=== PATIENT | female | born 2000 | race Hispanic/Latino ===

== ENCOUNTER 2024-08-21 21:05 | Emergency (ER) | payer SELFPAY ==
[2024-08-21 23:35] LABS: #Basophils 0.02 10x3/uL (0.0-0.2); #Eosinphils 0.08 10x3/uL (0.0-0.5); #Neutrophils 5.43 10x3/uL (1.5-8.4); %Basophils 0.2 % (0.0-2.0); %Eosinophils 0.9 % (0.0-6.0); %Lymphocytes 35.6 % (18.0-47.0); %Monocytes 4.3 % (0.0-10.0); %Neutrophils 58.8 % (40.0-75.0); Hematocrit 30.4 % (34.9-44.5); Hemoglobin 10.6 g/dL (12.0-15.5); Mean Corpuscular HGB CONC 34.9 g/dL (32.0-36.0); Mean Corpuscular Hemoglobin 30.1 pg (27.0-33.0); Mean Corpuscular Volume 86.4 fL (81.6-98.3); Mean Platelet Volume 9.1 fL (7.4-10.4); Platelet Count 215 10x3/uL (150-450); RBC Distribution Width 12.8 % (11.5-14.5); Red Blood Cell (RBC) Count 3.52 10x6/uL (3.90-5.03); White Blood Cell (WBC) Count 9.2 10x3/uL (3.5-10.5)
[2024-08-21 23:49] LABS: ALT (SGPT) 12 U/L (8-55); AST (SGOT) 18 U/L (5-34); Albumin 3.2 g/dL (3.5-5.0); Alkaline Phosphatase 60 U/L (40-110); Anion Gap 12 mmol/L (10-20); BUN (Urea Nitrogen) 4 mg/dL (7.0-18.7); Bilirubin, Total 0.5 mg/dL (0.2-1.2); Calc. Creatinine Clearance 0 mL/min (70-130); Calcium 8.8 mg/dL (7.8-10.44); Carbon Dioxide 18 mmol/L (22-29); Chloride 109 mmol/L (98-107); Estimated GFR 133; Globulin 3.2 g/dL (2.4-3.5); Glucose 85 mg/dL (70-105); Potassium 3.5 mmol/L (3.5-5.1); Protein, Total 6.4 g/dL (6.0-8.3); Sodium 135 mmol/L (136-145)
[2024-08-21 23:50] LABS: Bilirubin Neg (Negative); Blood, Urine Negative (Negative); Clarity Clear (Clear); Glucose, Urine (Dipstick) Normal (Negative); Ketone, Urine Negative (Negative); Leukocyte Negative (Negative); Nitrite Negative (Negative); Protein, Urine (Dipstick) Negative (Neg-Trace); Specific Gravity, Urine 1.015 (1.005-1.030); Urobilinogen Normal mg/dL (Less than 2)
[2024-08-22 00:06] LABS: Bacteria/HPF 1+ HPF (None Seen); CAUTI Indications for Culture Pregnancy; RBC/HPF 0-3 HPF (0-3); Squamous Epithelial 0-3 HPF (0-3); WBC/HPF 0-3 HPF (0-3)
[2024-08-22 00:07] LABS: Urine Culture Reflex No No; Urine Culture Reflex Yes Yes
[2024-08-22 01:39] LABS: Lipase 15 U/L (8-78); Magnesium 1.9 mg/dL (1.6-2.6)
== END 2024-08-22 02:22 | disposition home or self-care (01) ==
LOC: CSHERS 21:05
DX: O99.891 Other specified diseases and conditions complicating pregnancy (principal); R10.84 Generalized abdominal pain; Z3A.14 14 weeks gestation of pregnancy
CPT/HCPCS: 36415; 80053; 81001; 83605; 83690; 83735; 84702; 85025; 87086; 99284